=== PATIENT | male | born 1975 | race Caucasian/White ===

== ENCOUNTER 2018-06-18 18:58 | Emergency (ER) | payer OTHER ==
[~2018-06-18] VITALS: Ht 185.4 cm; Wt 131.5 kg
[~2018-06-18 18:58] MED LIST: FLUO20 PO; KETO10 PO; LISI20 PO; Naprosyn500 MG PO; Norco 5-325 Ta1 EACH PO; OXYACE5T PO; PROM25 PO; TAMS.4ER PO; ZESTORETIC 20-121 EA
[2018-06-18] MEDS ORDERED: ALBU90OI INH (20:40)
[2018-06-18] MEDS ORDERED: BENZ100A PO (20:40)
== END 2018-06-18 20:43 | disposition home or self-care (01) ==
LOC: ER 18:58
DX: J20.9 Acute bronchitis, unspecified (principal); Z79.899 Other long term (current) drug therapy; I10 Essential (primary) hypertension; F17.200 Nicotine dependence, unspecified, uncomplicated
CPT/HCPCS: 99283